=== PATIENT | female | born 1975 | race Native Hawaiian/Other Pacific Islander ===

== ENCOUNTER 2020-11-19 10:39 | Outpatient (CLI) | payer OTHER | END 2020-11-19 19:38 | disposition home or self-care (01) | LOC: RAD 10:39 | PROVIDERS: ATTEND Internal Medicine | DX: F31.9 Bipolar disorder, unspecified (principal); F20.9 Schizophrenia, unspecified; T14.8XXA Other injury of unspecified body region, initial encounter ==

== ENCOUNTER 2020-12-09 10:01 | Outpatient (CLI) | payer OTHER | END 2020-12-09 19:50 | disposition home or self-care (01) | LOC: RAD 10:01 | PROVIDERS: ATTEND Internal Medicine | DX: F31.9 Bipolar disorder, unspecified (principal); F20.9 Schizophrenia, unspecified; T14.8XXA Other injury of unspecified body region, initial encounter ==